=== PATIENT | female | born 1940 | race Caucasian/White ===

== ENCOUNTER 2025-01-30 15:43 | Emergency (ER) | payer MEDICARE ==
[2025-01-30 15:59] VITALS: TEMP 97.6
--- NOTE | 2025-01-30 16:10 | ERPHSYRPT ---
- History of Present Illness Time Seen by Provider: 01/30/25 15:48 Source: patient, family Exam Limitations: no limitations Patient Subjective Stated Complaint: States she took her first dose of levaquin for a UTI around 1:30pm today. About an hour ago, she started feeling like her mouth was swollen and her throat was full. Triage Nursing Assessment: Patient ambulated back to ER without difficulties. No SOB. No cough. No rashes. She is alert and oriented. Physician History: 84 years old female with history of diabetes mellitus, recurrent UTI who was started on Levaquin and has taken first dose around 1:30 PM, almost an hour ago started noticing some tingling sensation and heaviness/swelling of tongue/scratchiness in the throat without difficulty breathing. Patient took Benadryl 25 mg prior to arrival and her symptoms are started to improve. Denies any palpitations, shortness of breath, feeling dizzy or lightheaded. No stridors or wheezing reported. Allergies/Adverse Reactions: [id number] Reductase Inhibitor Adverse Reaction (Verified 01/30/25 15:59) Home Medications: Antiox.mv No.10/Omeg3s/Lut/Dain [I-Caps with Lutein-[place] 3 Sfg] 1 each PO DAILY 04/03/13 [History] Metformin HCl 500 mg [Glucophage 500 MG] 500 mg PO BID 04/03/13 [History] Hx Tetanus, Diphtheria Vaccination/Date Given: Yes Immunizations Up to Date: Yes Travel Risk - International Travel Have you traveled outside of the country in past 3 weeks: No - Emerging Infectious Disease Are you exhibiting symptoms associated with any current EIDs: No - Review of Systems Constitutional: No Symptoms Eyes: No Symptoms Ears, Nose, & Throat: Throat Swelling Respiratory: No Symptoms Cardiac: No Symptoms Abdominal/Gastrointestinal: No Symptoms Skin: No Symptoms Psychological: No Symptoms - Past Medical History Pertinent Past Medical History: Yes Neurological History: No Pertinent History ENT History: Cataracts, Other Cardiac History: No Pertinent History Respiratory History: No Pertinent History Endocrine Medical History: Diabetes Type II Musculoskeletal History: No Pertinent History GI Medical History: No Pertinent History History: No Pertinent History Psycho-Social History: No Pertinent History Female Reproductive Disorders: No Pertinent History - Past Surgical History Past Surgical History: Yes Neuro Surgical History: No Pertinent History Cardiac: No Pertinent History Respiratory: No Pertinent History Gastrointestinal: Other Genitourinary: No Pertinent History Musculoskeletal: No Pertinent History Female Surgical History: No Pertinent History Other Surgical History: colonoscopy, retinal tear repair - Social History Smoking Status: Never smoker Exposure to second hand smoke: No Drug Use: none - Social Determinants of Health Will the patient participate in the screening: Yes Do you worry about a steady place to live?: No Do you have any problems with any of the following?: No known problems In the past 12 months,have you had to go without utilities?: No Transportation Issues: No Has anyone in your support network made you feel unsafe?: No Have you or anyone in your house had to go w/o enough food: No - Nursing Vital Signs Nursing Vital Signs: Initial Vital Signs Temperature 97.6 F 01/30/25 15:45 Pulse Rate 80 01/30/25 15:45 Respiratory Rate 17 01/30/25 15:45 Blood Pressure 224/76 01/30/25 15:45 O2 Sat by Pulse Oximetry 98 01/30/25 15:45 Pain Scale Pain Intensity 0 - Physical Exam General Appearance: no apparent distress, alert Eye Exam: bilateral eye: normal inspection, PERRL, EOMI Ear Exam: bilateral ear: auricle normal, canal normal, TM normal Nasal Exam: normal inspection Throat Exam: normal, pharynx normal, No dental tenderness Neck Exam: normal inspection, non-tender, supple, full range of motion Cardiovascular/Respiratory Exam: normal breath sounds, regular rate/rhythm Neurologic Exam: alert, oriented x 3, cooperative, 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 Skin Exam: normal color SpO2 Interpretation: normal SpO2: 98 O2 Delivery: Room Air Ordered Tests: Active Orders 24 hr Category Date Time Status IV Insertion STAT Care 01/30/25 16:07 Active Medication Summary Discontinued Medications Generic Name Dose Route Start Last Admin Trade Name Freq PRN Reason Stop Dose Admin Methylprednisolone Sodium 0 mg 01/30/25 16:07 01/30/25 16:39 Succinate 80 mg/ Sterile Water IV 01/30/25 16:08 80 mg 2 ml STAT ONE Administration Diphenhydramine HCl 25 mg 01/30/25 16:07 01/30/25 16:33 Diphenhydramine Hcl 50 Mg/Ml Vial IV 01/30/25 16:08 25 mg STAT ONE Administration Diphenhydramine HCl Confirm 01/30/25 16:29 Diphenhydramine Hcl 50 Mg/Ml Vial Administered 01/30/25 16:30 Dose 50 mg .ROUTE .STK-MED ONE Famotidine 20 mg 01/30/25 16:07 01/30/25 16:35 Famotidine 20 Mg/1 Vial IV 01/30/25 16:08 20 mg STAT ONE Administration Famotidine Confirm 01/30/25 16:29 Famotidine 20 Mg/1 Vial Administered 01/30/25 16:30 Dose 20 mg IV .STK-MED ONE Methylprednisolone Sodium Succinate Confirm 01/30/25 16:29 Methylprednis Sod Succ 125 Mg/2 Ml Vial Administered 01/30/25 16:30 Dose 125 mg .ROUTE .STK-MED ONE Sterile Water Confirm 01/30/25 16:29 Water For Injection,Sterile 10 Ml Vial Administered 01/30/25 16:30 Dose 10 ml IJ .STK-MED ONE - Progress Progress: improved, re-examined Progress Note: 01/30/25 17:42 83-year-old is evaluated in the ER for allergic reaction to Levaquin with swelling of tongue/floor of mouth and throat scratchiness prior to arrival which started to improve after taking oral Benadryl. Patient is not in any distress, no stridor or wheezing She is given Benadryl Pepcid and Solu-Medrol, observed in the ER with improvement of her symptoms. Will give her prescription of Benadryl/Pepcid along with steroid to take home and recommended monitoring of glucose while on steroids. Also recommended stop taking Levaquin and talk to her primary care about a different prescription for UTI. Discussed signs symptoms of worsening needing return to ER which she seems understanding. Stable for discharge. Complexity of problem addressed: Moderate acute Complexity of data reviewed/analyzed: Limited Risk of complication: Mild to moderate Counseled pt/family regarding: diagnosis, need for follow-up Medical Desision Making - Independent Historian Additional History obtained from: Child - Diagnostic Testing Diagnostic test were ordered, analyzed, and reviewed by me: No - Risk of complications The pt has a mod risk of morbidity or mortality based on: Need for prescription drug management - Departure Departure Disposition: Home Clinical Impression: Allergic reaction Condition: Stable Critical Care Time: No Referrals: KARTHIK MORGAN [Primary Care Provider] - Follow up with PCP 1 day Instructions: Angioedema, Allergic reaction - ED discharge instructions Additional Instructions: Take Benadryl/Pepcid as recommended. Follow-up with primary care for reevaluation. Return to ER for any worsening. Prescriptions: Diphenhydramine HCl 25 mg [Benadryl 25 mg Capsule] 25 mg PO Q4H PRN PRN #20 cap PRN Reason: Allergies Prednisone 20 mg [Deltasone 20 mg] 40 mg PO DAILY 5 Days #10 tablet Famotidine 20 mg [Pepcid 20 MG] 20 mg PO BID #10 tablet
[2025-01-30] MEDS ORDERED: BENADRYL 50 MG/ML ONE (16:29)
[2025-01-30] MEDS ORDERED: Sterile H2O 10 ml IJ ONE (16:29)
[2025-01-30] MEDS ORDERED: solu-MEDROL ONE (16:29)
[2025-01-30] MEDS ORDERED: Pepcid 20 MG VIAL IV ONE (16:29)
[2025-01-30] MEDS: BENADRYL 50 MG/ML IV ONE (16:33)
[2025-01-30] MEDS: Pepcid 20 MG VIAL IV ONE (16:35)
[2025-01-30] MEDS: solu-MEDROL 80 MG, Sterile H2O 10 ml 2 ML IV ONE (16:39)
[2025-01-30 18:05] VITALS: O2SAT 96
[2025-01-30 18:11] VITALS: BP 172/69; PULSE 80; RESP 18
== END 2025-01-30 18:05 | disposition home or self-care (01) ==
LOC: ED 15:43
DX: L29.89 Other pruritus (principal); T36.8X5A Adverse effect of other systemic antibiotics, initial encounter; E11.9 Type 2 diabetes mellitus without complications; Z79.52 Long term (current) use of systemic steroids; Z79.84 Long term (current) use of oral hypoglycemic drugs; Z79.899 Other long term (current) drug therapy
CPT/HCPCS: 96374; 96375; 99283; 99284; J1200; J2919